=== PATIENT | female | born 1990 | race Caucasian/White ===

== ENCOUNTER 2017-01-10 21:20 | Emergency (ER) | payer BC, OTHER ==
[2017-01-10] MEDS ORDERED: ALBUTEROL SULFATE 0.083% NEB 2.5 MG/3 ML AMPUL NEB ONE (21:44)
--- NOTE | 2017-01-10 21:54 | ER Document Report ---
ED General - General Chief Complaint: Breathing Difficulty Stated Complaint: SHORTNESS OF BREATH Time Seen by Provider: 01/10/17 21:46 Notes: Patient is a 26-year-old female without past medical history, tobacco smoker, who presents with 1 day of progressively worsening shortness of breath. Patient states that she has had a upper respiratory illness for the past 1 week with associated dry cough, nasal congestion and sore throat. However she states for the past 24 hours she has had a progressively worsening severe shortness of breath with associated heaviness in her chest. The symptoms are constant and have been progressively worsening. She has been trying her son's albuterol inhalers at home with some improvement of her symptoms. She states any form of exertion worsens her symptoms. She has not seen a primary care doctor regarding today's concerns. She denies any history of DVT or pulmonary embolus. She has not had any fever or constitutional symptoms. TRAVEL OUTSIDE OF THE [place] IN LAST 30 DAYS: No - Related Data Allergies/Adverse Reactions: No Known Allergies Allergy (Unverified 08/03/11 14:31) Past Medical History - General Information source: Patient - Social History Smoking Status: Current Every Day Smoker Frequency of alcohol use: None Drug Abuse: None Lives with: Family Family History: Reviewed & Not Pertinent Pulmonary Medical History: Reports: Hx Bronchitis, Hx Pneumonia Past Surgical History: Reports: Hx Section - x1 - Immunizations Hx Diphtheria, Pertussis, Tetanus Vaccination: Yes Review of Systems - Review of Systems Notes: Constitutional: Negative for fever. HENT: Negative for sore throat. Eyes: Negative for visual changes. Cardiovascular: Negative for chest pain. Respiratory: Positive for shortness of breath. Gastrointestinal: Negative for abdominal pain, vomiting or diarrhea. Genitourinary: Negative for dysuria. Musculoskeletal: Negative for back pain. Skin: Negative for rash. Neurological: Negative for headaches, weakness or numbness. 10 point ROS negative except as marked above and in HPI. Physical Exam - Vital signs Vitals: Temp Pulse Resp BP Pulse Ox 98.1 F 119 H 22 H 139/83 H 90 L 01/10/17 21:28 01/10/17 21:28 01/10/17 21:28 01/10/17 21:28 01/10/17 21:28 Interpretation: Tachycardic, Hypoxic, Tachypneic Notes: PHYSICAL EXAMINATION: GENERAL: Appears to be in moderate respiratory distress, somewhat uncomfortable HEAD: Atraumatic, normocephalic. EYES: Pupils equal round and reactive to light, extraocular movements intact, sclera anicteric, conjunctiva are normal. ENT: nares patent, oropharynx clear without exudates. Dry mucous membranes. NECK: Normal range of motion, supple without lymphadenopathy LUNGS: Mild tachypnea, increased work of breathing but no retractions. Slightly diminished air movement throughout, scattered rhonchi and wheezing at the bases bilaterally. HEART: Regular tachycardia without murmurs ABDOMEN: Soft, nontender, normoactive bowel sounds. No guarding, no rebound. No masses appreciated. EXTREMITIES: Normal range of motion, no pitting or edema. No cyanosis. NEUROLOGICAL: No focal neurological deficits. Moves all extremities spontaneously and on command. PSYCH: Somewhat anxious. SKIN: Warm, Dry, normal turgor, no rashes or lesions noted. Course - Re-evaluation Re-evalutation: 01/10/17 21:52 Patient presents with shortness of breath, tachypnea, tachycardia and hypoxemia. Patient is somewhat ill in appearance, breathing quickly but otherwise in no acute distress. Examination shows scattered rhonchi but mild wheezing and tightness of air movement at the bases. Wheezing or tightness of air movement. She has no history of asthma and this to be an atypical presentation for first time presentation of asthma. Pneumonia is also in the differential although again this is somewhat unlikely as patient has no fever and denies any constitutional symptoms that would support this diagnosis. Influenza again seems unlikely as patient does not have a clinical history to support this diagnosis. Primary concerns at this time do include a possible pulmonary embolus, less likely a myocarditis of viral etiology with associated pulmonary edema. Patient does have some trace edema in her bilateral lower extremities and she states she is uncertain whether or not she has this at baseline. Will obtain a chest x-ray, labs including a venous blood gas, d-dimer , cardiac markers, and proBNP. Also trial a nebulizer to see if this has any improvement in patient's symptoms. Will continue to monitor very closely and reassess frequently. 01/10/17 22:19 I have reassessed the patient after her initial nebulizer and did not notice any significant difference in her lung examination. She remains with expiratory rhonchi in the lower lung jensen bilaterally. Remains oxygen dependent and slightly tachypneic. Will continue to monitor closely 01/10/17 22:58 D-dimer is negative. Troponin and BNP lites otherwise unremarkable. Patient continues to feel clinically improved after ongoing continuous nebulizer therapy. Steroids will also be administered. 01/11/17 00:12 Patient continues to be oxygen dependent although her work of breathing is now much improved. Suspect possible pneumonia despite a clinical history that is not entirely consistent with this diagnosis with superimposed obstructive airway disease secondary to smoking. I discussed this case with Dr. Taylor who will admit. - Vital Signs Vital signs: Temp Pulse Resp BP Pulse Ox 98.2 F 119 H 15 121/77 96 01/11/17 02:00 01/10/17 21:28 01/11/17 02:01 01/11/17 02:00 01/11/17 02:01 - Laboratory Result Diagrams: 01/10/17 21:56 01/10/17 21:56 Laboratory results interpreted by me: 01/10/17 01/10/17 21:56 21:56 WBC 13.9 H Eosinophils % 7.7 H Absolute Neutrophils 8.9 H Absolute Eosinophils 1.1 H Glucose 117 H - Diagnostic Test Radiology reviewed: Image reviewed, Reports reviewed Radiology results interpreted by me: 01/11/17 00:12 Chest x-ray: No acute infiltrate or pneumothorax - EKG Interpretation by Me Additional EKG results interpreted by me: 01/11/17 03:08 Sinus tachycardia. Rate 112. No ST elevations or depressions. QTC is 470. Critical Care Note - Critical Care Note Total time excluding time spent on procedures (mins): 37 Comments: Critical care time spent obtaining history from patient or surrogate, discussions with consultants, development of treatment plan with patient or surrogate, evaluation of patient's response to treatment, examination of patient , ordering and performing treatments and interventions, ordering and review of laboratory studies, re-evaluation of patient's condition, ordering and review of radiographic studies and review of old charts Discharge - Discharge Clinical Impression: Respiratory distress, Hypoxemia, Tachycardia Condition: Fair Disposition: ADMITTED OBSERVATION Admitting Provider: Dae Taylor Unit Admitted: Telemetry
[2017-01-10 22:18] LABS: ABSOLUTE BASOPHILS # (AUTO) 0.1 10^3/uL (0.0-0.2); ABSOLUTE EOSINOPHILS # (AUTO) 1.1 10^3/uL (0.0-0.6); ABSOLUTE LYMPHOCYTES (AUTO) 3.1 10^3/uL (0.5-4.7); ABSOLUTE MONOCYTES (AUTO) 0.7 10^3/uL (0.1-1.4); ABSOLUTE NEUT (AUTO) 8.9 10^3/uL (1.7-8.2); BASOPHILS % (AUTO) 0.5 % (0-2); EOSINOPHILS % (AUTO) 7.7 % (0-6); HEMATOCRIT 42.1 % (36.0-47.0); HEMOGLOBIN 14.4 g/dL (12.0-15.5); HGB HCT DIFFERENCE 1.1; LYMPHOCYTES % (AUTO) 22.4 % (13-45); MEAN CORPUSCULAR HEMOGLOBIN 29.1 pg (27.0-33.4); MEAN CORPUSCULAR HGB CONC 34.3 g/dL (32.0-36.0); MEAN CORPUSCULAR VOLUME 85 fl (80-97); MONOCYTES % (AUTO) 5.3 % (3-13); RED BLOOD COUNT 4.97 10^6/uL (3.72-5.28); RED CELL DISTRIBUTION WIDTH 13.6 % (11.5-14.0); SEGMENTED NEUTROPHILS % (AUTO) 64.1 % (42-78); WHITE BLOOD COUNT 13.9 10^3/uL (4.0-10.5)
[2017-01-10 22:19] LABS: VENOUS BLOOD BASE EXCESS -0.3 mmol/L; VENOUS BLOOD HCO3 25.4 mmol/L (20-32); VENOUS BLOOD PCO2 45.6 mmHg (35-63); VENOUS BLOOD PH 7.36 (7.30-7.42)
[2017-01-10 22:39] LABS: ANION GAP 15 (5-19); BLOOD UREA NITROGEN 13 mg/dL (7-20); CALCIUM 9.8 mg/dL (8.4-10.2); CARBON DIOXIDE 25 mmol/L (22-30); CHLORIDE 104 mmol/L (98-107); CREATININE RESULT 0.92 mg/dL (0.52-1.25); GLUCOSE 117 mg/dL (75-110); SODIUM 143.5 mmol/L (137-145)
[2017-01-10 22:52] LABS: TROPONIN I < 0.012 ng/mL
[2017-01-10] MEDS ORDERED: IPRATROPIUM/ALBUTEROL 0.5-2.5 MG/3 ML AMPUL NEB ONE (22:58)
[2017-01-10] MEDS ORDERED: METHYLPREDNISOLONE INJ 125 MG/2 ML SDV IV ONE (22:58)
--- NOTE | 2017-01-10 23:21 | EKG REPORT ---
SEVERITY:- OTHERWISE NORMAL ECG - SINUS TACHYCARDIA : Confirmed by: Jasiel Borja 10-Jan-2017 23:20:24
--- NOTE | 2017-01-10 23:38 | RADIOLOGY REPORT (SQ) ---
EXAM DESCRIPTION: CHEST SINGLE VIEW COMPLETED DATE/TIME: 01/10/2017 10:31 pm REASON FOR STUDY: sob COMPARISON: None. EXAM PARAMETERS: NUMBER OF VIEWS: One view. TECHNIQUE: Single frontal radiographic view of the chest acquired. RADIATION DOSE: NA LIMITATIONS: None. FINDINGS: LUNGS AND PLEURA: No opacities, masses or pneumothorax. No pleural effusion. MEDIASTINUM AND HILAR STRUCTURES: No masses. Contour normal. HEART AND VASCULAR STRUCTURES: Heart normal in size. Normal vasculature. BONES: No acute findings. HARDWARE: None in the chest. OTHER: No other significant finding. IMPRESSION: NO ACUTE RADIOGRAPHIC FINDING IN THE CHEST. TECHNICAL DOCUMENTATION: JOB ID: [id number] [employer]- All Rights Reserved
[2017-01-10] MEDS ORDERED: AZITHROMYCIN 250 MG TABLET PO ONE (23:48)
[2017-01-11] MEDS ORDERED: LACTULOSE SYRUP 20 GM/30 ML UDCUP PO ONE (00:20)
[2017-01-11] MEDS ORDERED: CHLORPHENIRAMINE MALEATE 4 MG TABLET PO ONE ×2 (00:21→05:30)
[2017-01-11] MEDS ORDERED: LANSOPRAZOLE 30 MG TAB.RAP.DR PO ONE ×2 (00:21→05:30)
[2017-01-11] MEDS ORDERED: IPRATROPIUM/ALBUTEROL 0.5-2.5 MG/3 ML AMPUL NEB PRN (00:22)
[2017-01-11] MEDS ORDERED: FLUTICASONE NASAL SPRAY 50 MCG/SPRY 120 SPRAY/16 GM NASL ONE ×2 (00:45→05:00)
[2017-01-11] MEDS ORDERED: CEFTRIAXONE 1 GM/D5W RTU 1 GM/50 ML RTUPB IV ONE ×2 (01:00→05:15)
[2017-01-11] MEDS ORDERED: PREDNISONE 20 MG TABLET PO ONE ×2 (01:00→05:00)
[2017-01-11] MEDS: IPRATROPIUM/ALBUTEROL 0.5-2.5 MG/3 ML AMPUL NEB SCH ×3 (02:10→13:32)
[2017-01-11] MEDS: GUAIFENESIN SYRP 200 MG/10 ML UDC PO PRN (04:13)
--- NOTE | 2017-01-11 04:53 | PDOC H&P ---
History of Present Illness Admission Date/PCP: 01/11/17 00:21 Patient complains of: Rhinorrhea, GERD, tobacco and shortness of breath History of Present Illness: ANNA RETANA is a 26 year old female with a past medical history of seasonal allergies, GERD and tobacco dependence who presents the emergency room after 3 weeks of rhinorrhea thought secondary to allergic sinusitis. She has had intermittently productive cough and severe shortness of breath associated with palpitations and tachycardia symptoms worse at night. She denies chest pain but palpitations promp her to seek evaluation emergency room where she is found to have an unremarkable workup with exception to hypoxia oxygen saturations of 89% on room air. She receives albuterol and Atrovent nebulizer referred to the hospitalist for observation. Patient denies recent antibiotic use Past Medical History Pulmonary Medical History: Reports: Bronchitis, Pneumonia Psychiatric Medical History: Reports: Tobacco Dependency Denies: Depression Past Surgical History Past Surgical History: Reports: Section - x1 Social History Information Source: Patient Lives with: Family Smoking Status: Current Every Day Smoker Last Time Smoked: 01/07/2017 Frequency of Alcohol Use: Rare Hx Recreational Drug Use: No Drugs: None Hx Prescription Drug Abuse: No - Advance Directive Resuscitation Status: Full Code Family History Family History: COPD Parental Family History Reviewed: Yes Children Family History Reviewed: Yes Sibling(s) Family History Reviewed.: Yes Medication/Allergy Home Medications: No Home Medications 1 08/03/11 Amox Tr/Potassium Clavulanate [Augmentin 875-125 mg Tablet] 1 tab PO Q12 #20 tab 04/30/15 Loratadine [Claritin 10 Mg Tablet] 10 mg PO DAILY #30 tablet 04/30/15 Prednisone 20 mg PO BID #6 tablet 04/30/15 Allergies/Adverse Reactions: No Known Allergies Allergy (Unverified 08/03/11 14:31) Review of Systems Constitutional: ABSENT: chills, fever(s), headache(s), weight gain, weight loss Eyes: ABSENT: visual disturbances Ears: ABSENT: hearing changes Cardiovascular: ABSENT: chest pain, dyspnea on exertion, edema, orthropnea, palpitations Respiratory: ABSENT: cough, hemoptysis Gastrointestinal: ABSENT: abdominal pain, constipation, diarrhea, hematemesis, hematochezia, nausea, vomiting Genitourinary: ABSENT: dysuria, hematuria Musculoskeletal: ABSENT: joint swelling Integumentary: ABSENT: rash, wounds Neurological: ABSENT: abnormal gait, abnormal speech, confusion, dizziness, focal weakness, syncope Psychiatric: ABSENT: anxiety, depression, homidical ideation, suicidal ideation Endocrine: ABSENT: cold intolerance, heat intolerance, polydipsia, polyuria Hematologic/Lymphatic: ABSENT: easy bleeding, easy bruising Physical Exam Vital Signs: Temp Pulse Resp BP Pulse Ox 98.2 F 88 16 121/77 96 01/11/17 02:00 01/11/17 02:10 01/11/17 02:10 01/11/17 02:00 01/11/17 02:01 General appearance: PRESENT: cooperative, mild distress, well-developed, well- nourished Head exam: PRESENT: atraumatic, normocephalic Eye exam: PRESENT: conjunctiva pink, EOMI, PERRLA. ABSENT: scleral icterus Ear exam: PRESENT: normal external ear exam Mouth exam: PRESENT: moist, tongue midline Neck exam: ABSENT: carotid bruit, JVD, lymphadenopathy, thyromegaly Respiratory exam: PRESENT: accessory muscle use, prolonged expiratory phas, retraction, tachypnea. ABSENT: chest wall tenderness, crackles, rales, rhonchi , stridor, wheezes Cardiovascular exam: PRESENT: RRR. ABSENT: diastolic murmur, rubs, systolic murmur Pulses: PRESENT: normal dorsalis pedis pul Vascular exam: PRESENT: normal capillary refill GI/Abdominal exam: PRESENT: normal bowel sounds, soft. ABSENT: distended, guarding, mass, organolmegaly, rebound, tenderness Rectal exam: PRESENT: deferred Extremities exam: PRESENT: full ROM. ABSENT: calf tenderness, clubbing, pedal edema Neurological exam: PRESENT: alert, awake, oriented to person, oriented to place , oriented to time, oriented to situation, CN II-XII grossly intact. ABSENT: motor sensory deficit Psychiatric exam: PRESENT: appropriate affect, normal mood. ABSENT: homicidal ideation, suicidal ideation Skin exam: PRESENT: dry, intact, warm. ABSENT: cyanosis, rash Results Impressions: Chest X-Ray 01/10/17 21:50 IMPRESSION: NO ACUTE RADIOGRAPHIC FINDING IN THE CHEST. Assessment & Plan - Diagnosis (1) Acute bronchitis Is this a current diagnosis for this admission?: Yes Plan: Complicated by uncontrolled seasonal allergies, postnasal drip, tobacco and GERD. She will be observed on a monitored bed with supplemental oxygen, incentive spirometry, albuterol and Atrovent, Flonase, chlorpheniramine and Prevacid. (2) Seasonal allergies Is this a current diagnosis for this admission?: Yes Plan: Chlorpheniramine and Flonase (3) Tobacco dependence Is this a current diagnosis for this admission?: Yes Plan: Tobacco Dependence patient received tobacco cessation counseling and offered nicotine replacement options (4) GERD (gastroesophageal reflux disease) Is this a current diagnosis for this admission?: Yes Plan: Prevacid (5) Respiratory distress Is this a current diagnosis for this admission?: Yes Plan: Please see #1 (6) Tachycardia Is this a current diagnosis for this admission?: Yes Plan: Secondary to #1. - Time Time Spent: 30 to 50 Minutes - Inpatient Certification Medical Necessity: Need Close Monitoring Due to Risk of Patient Decompensation
[2017-01-11] MEDS ORDERED: FLUTICASONE NASAL SPRAY 50 MCG/SPRY 120 SPRAY/16 GM ONE (06:27)
[2017-01-11] MEDS ORDERED: CHLORPHENIRAMINE MALEATE 4 MG TABLET ONE (06:27)
[2017-01-11 06:35] LABS: HEMATOCRIT 39.3 % (36.0-47.0); HEMOGLOBIN 13.7 g/dL (12.0-15.5); HGB HCT DIFFERENCE 1.8; MEAN CORPUSCULAR HEMOGLOBIN 29.4 pg (27.0-33.4); MEAN CORPUSCULAR HGB CONC 34.7 g/dL (32.0-36.0); MEAN CORPUSCULAR VOLUME 85 fl (80-97); RED BLOOD COUNT 4.65 10^6/uL (3.72-5.28); RED CELL DISTRIBUTION WIDTH 13.7 % (11.5-14.0); WHITE BLOOD COUNT 10.4 10^3/uL (4.0-10.5)
[2017-01-11] MEDS: HEPARIN SOD (PORCINE) 5,000 UNIT/ML 1 ML SYRINGE SUBCUT SCH ×3 (06:40→23:04)
[2017-01-11] MEDS ORDERED: AZITHROMYCIN 500 MG in DEXTROSE 5%-WATER 250 ML IV SCH (10:00)
[2017-01-11] MEDS: PREDNISONE 20 MG TABLET PO SCH ×2 (10:09→17:38)
[2017-01-11] MEDS: ACETAMINOPHEN 325 MG TABLET PO PRN ×2 (10:10→19:56)
[2017-01-11] MEDS: GUAIFENESIN 600 MG TABLET.SA PO SCH ×2 (10:10→23:03)
[2017-01-11] MEDS ORDERED: INFLUENZA ADLT QUAD (36MOS+) 2017-18 VAC 0.5 ML SYR IM PRN (10:38)
[2017-01-11] MEDS: FLUTICASONE NASAL SPRAY 50 MCG/SPRY 120 SPRAY/16 GM NASL SCH ×2 (10:50→21:21)
[2017-01-11] MEDS ORDERED: LABETALOL HCL INJ 20 MG/4 ML DISP.SYRIN IV ONE (14:16)
[2017-01-11] MEDS ORDERED: METOPROLOL SUCCINATE 50 MG TAB.SR.24H PO ONE (15:38)
[2017-01-11] MEDS: IPRATROPIUM/ALBUTEROL 0.5-2.5 MG/3 ML AMPUL NEB PRN (16:48)
--- NOTE | 2017-01-11 17:45 | PDOC PROGRESS REPORT ---
Subjective Progress Note for:: 01/11/17 Subjective:: Pt is seen resting in bed comfortably. She reports that she does feel slightly better as compared to last night. She denies fever, chills, headache, dizziness , chest pain, orthopnea, and cough. However, she does endorse chest discomfort r/t palpitations and continued dyspnea. She reports that her dyspnea does worsen with activity and is associated with the palpitations; "when my heart is beating harder and faster, it feels like I'm breathing through a straw." She denies previous history of palpitations or known arrhythmias. The patient states that aside from the palpitations and associated dyspnea, she feels to be in good health and would be ready to be discharged home. She has no other questions or concerns today. Physical Exam Vital Signs: Temp Pulse Resp BP Pulse Ox 98.0 F 123 H 22 H 139/79 H 92 01/11/17 15:01 01/11/17 16:48 01/11/17 16:48 01/11/17 15:01 01/11/17 16:48 Intake & Output 01/10/17 01/11/17 01/12/17 06:59 06:59 06:59 Intake Total 200 Balance 200 Weight 96.5 kg General appearance: PRESENT: no acute distress, obese, well-developed, well- nourished Head exam: PRESENT: atraumatic, normocephalic Eye exam: PRESENT: conjunctiva pink, EOMI, PERRLA. ABSENT: scleral icterus Ear exam: PRESENT: normal external ear exam Mouth exam: PRESENT: moist, tongue midline Neck exam: ABSENT: carotid bruit, JVD, lymphadenopathy, thyromegaly Respiratory exam: PRESENT: clear to auscultation nitish, rhonchi - occasional, symmetrical, unlabored. ABSENT: rales, tachypnea, wheezes Cardiovascular exam: PRESENT: RRR, tachycardia. ABSENT: diastolic murmur, rubs , systolic murmur Pulses: PRESENT: normal dorsalis pedis pul Vascular exam: PRESENT: normal capillary refill GI/Abdominal exam: PRESENT: normal bowel sounds, soft. ABSENT: distended, guarding, mass, organolmegaly, rebound, tenderness Rectal exam: PRESENT: deferred Extremities exam: PRESENT: full ROM. ABSENT: calf tenderness, clubbing, pedal edema Neurological exam: PRESENT: alert, awake, oriented to person, oriented to place , oriented to time, oriented to situation, CN II-XII grossly intact. ABSENT: motor sensory deficit Psychiatric exam: PRESENT: appropriate affect, normal mood. ABSENT: homicidal ideation, suicidal ideation Skin exam: PRESENT: dry, intact, warm. ABSENT: cyanosis, rash Results Laboratory Results: 01/11/17 05:57 01/11/17 05:57 WBC 10.4 RBC 4.65 Hgb 13.7 Hct 39.3 MCV 85 MCH 29.4 MCHC 34.7 RDW 13.7 Plt Count 236 Impressions: Chest X-Ray 01/10/17 21:50 IMPRESSION: NO ACUTE RADIOGRAPHIC FINDING IN THE CHEST. Assessment & Plan - Diagnosis (1) Tachycardia Is this a current diagnosis for this admission?: Yes Plan: Pt has persistent tachycardia with a HR of 120-140s and associated worsening dyspnea despite improvement in respiratory status. This is concerning for SVT/ PSVT rather than a reflection of an acute infectious process. Pt will be ready for discharge once HR is controlled. 1- Will trial Labetalol x1 2- Start metoprolol 25 mg BID as pt's BP is also elevated 3- Will scale back on Duonebs and observe for resolution of tachycardia (2) Acute bronchitis Is this a current diagnosis for this admission?: Yes Plan: Improved; pt reports that sore throat and post nasal drip have resolved. She denies cough. She is now maintaining oxygen saturations while on room air. 1- Continue Azithromycin 2- Supplemental oxygen to keep O2 sats >90% 3- Continue Flonase and chlorpheniramine 4- Will reduce nebulizer frequency given patient's persistent tachycardia (3) Seasonal allergies Qualifiers: Chronicity: unspecified Is this a current diagnosis for this admission?: Yes Plan: Improving; plan as above. (4) Tobacco dependence Is this a current diagnosis for this admission?: Yes Plan: Encouraged smoking cessation; nicotine replacement therapy offered. (5) GERD (gastroesophageal reflux disease) Is this a current diagnosis for this admission?: Yes Plan: Continue Prevacid (6) Respiratory distress Is this a current diagnosis for this admission?: Yes Plan: Resolved. Plan as above. - Time Time Spent with patient: 25-34 minutes Smoking Cessation Education: 3 to 10 minutes Anticipated discharge: Home - Inpatient Certification Medical Necessity: Need For Continuous Telemetry Monitoring
[2017-01-11] MEDS: METOPROLOL SUCCINATE 25 MG TAB.SR.24H PO SCH (23:03)
[2017-01-12] MEDS: IPRATROPIUM/ALBUTEROL 0.5-2.5 MG/3 ML AMPUL NEB PRN ×2 (00:02→18:16)
[2017-01-12] MEDS: HEPARIN SOD (PORCINE) 5,000 UNIT/ML 1 ML SYRINGE SUBCUT SCH ×3 (05:08→21:51)
[2017-01-12] MEDS: GUAIFENESIN SYRP 200 MG/10 ML UDC PO PRN (05:09)
[2017-01-12 05:39] LABS: HEMATOCRIT 42.3 % (36.0-47.0); HEMOGLOBIN 14.6 g/dL (12.0-15.5); HGB HCT DIFFERENCE 1.5; MEAN CORPUSCULAR HEMOGLOBIN 29.5 pg (27.0-33.4); MEAN CORPUSCULAR HGB CONC 34.5 g/dL (32.0-36.0); MEAN CORPUSCULAR VOLUME 85 fl (80-97); RED BLOOD COUNT 4.96 10^6/uL (3.72-5.28); RED CELL DISTRIBUTION WIDTH 14.1 % (11.5-14.0); WHITE BLOOD COUNT 20.7 10^3/uL (4.0-10.5)
[2017-01-12 05:49] LABS: ANION GAP 18 (5-19); BLOOD UREA NITROGEN 12 mg/dL (7-20); CARBON DIOXIDE 22 mmol/L (22-30); CHLORIDE 106 mmol/L (98-107); CREATININE RESULT 0.72 mg/dL (0.52-1.25); GLUCOSE 103 mg/dL (75-110); MAGNESIUM 2.1 mg/dL (1.6-2.3); POTASSIUM 4.7 mmol/L (3.6-5.0); SODIUM 146.1 mmol/L (137-145)
[2017-01-12] MEDS ORDERED: IPRATROPIUM/ALBUTEROL 0.5-2.5 MG/3 ML AMPUL NEB PRN (08:35)
[2017-01-12] MEDS ORDERED: BENZONATATE 100 MG CAPSULE PO PRN (08:37)
[2017-01-12] MEDS: NICOTINE 14 MG/24 HR PATCH.TD24 TD SCH (09:06)
[2017-01-12] MEDS: GUAIFENESIN 600 MG TABLET.SA PO SCH ×2 (09:07→22:05)
[2017-01-12] MEDS: METOPROLOL SUCCINATE 25 MG TAB.SR.24H PO SCH ×2 (09:07→22:04)
[2017-01-12] MEDS: AZITHROMYCIN 250 MG TABLET PO SCH (09:07)
[2017-01-12] MEDS: FLUTICASONE NASAL SPRAY 50 MCG/SPRY 120 SPRAY/16 GM NASL SCH ×2 (09:08→21:52)
[2017-01-12] MEDS ORDERED: PREDNISONE 20 MG TABLET PO SCH (10:00)
[2017-01-12] MEDS: GUAIFENESIN/CODEINE PHOS 100-10 MG/ 5 ML UDC PO PRN ×2 (11:39→15:45)
[2017-01-12] MEDS: METHYLPREDNISOLONE INJ 40 MG/1 ML SDV IV SCH ×2 (13:48→21:51)
--- NOTE | 2017-01-12 14:28 | PDOC PROGRESS REPORT ---
Subjective Progress Note for:: 01/12/17 Subjective:: Pt is seen resting in bed comfortably with family present. She states that she is continuing to improve slightly. She does continue to have chest discomfort described as being tightness and congestion that worsens with activity. She also has a nonproductive cough. She denies fever, chills, headache, dizziness, chest pain, orthopnea. Reports that the sensation of palpitations has resolved. She has no other questions or concerns today. Physical Exam Vital Signs: Temp Pulse Resp BP Pulse Ox 98.5 F 97 16 119/63 93 01/12/17 11:15 01/12/17 11:15 01/12/17 11:15 01/12/17 11:15 01/12/17 11:15 Intake & Output 01/11/17 01/12/17 01/13/17 06:59 06:59 06:59 Intake Total 200 1160 375 Balance 200 1160 375 Weight 96.5 kg General appearance: PRESENT: no acute distress, obese, well-developed, well- nourished Head exam: PRESENT: atraumatic, normocephalic Eye exam: PRESENT: conjunctiva pink, EOMI, PERRLA. ABSENT: scleral icterus Ear exam: PRESENT: normal external ear exam Mouth exam: PRESENT: moist, tongue midline Neck exam: ABSENT: carotid bruit, JVD, lymphadenopathy, thyromegaly Respiratory exam: PRESENT: clear to auscultation nitish, unlabored, wheezes - Expiratory wheezing bilaterally. ABSENT: rales, rhonchi, tachypnea Cardiovascular exam: PRESENT: RRR, +S1, +S2. ABSENT: diastolic murmur, rubs, systolic murmur, tachycardia Pulses: PRESENT: normal dorsalis pedis pul Vascular exam: PRESENT: normal capillary refill GI/Abdominal exam: PRESENT: normal bowel sounds, soft. ABSENT: distended, guarding, mass, organolmegaly, rebound, tenderness Rectal exam: PRESENT: deferred Extremities exam: PRESENT: full ROM. ABSENT: calf tenderness, clubbing, pedal edema Neurological exam: PRESENT: alert, awake, oriented to person, oriented to place , oriented to time, oriented to situation, CN II-XII grossly intact. ABSENT: motor sensory deficit Psychiatric exam: PRESENT: appropriate affect, normal mood. ABSENT: homicidal ideation, suicidal ideation Skin exam: PRESENT: dry, intact, warm. ABSENT: cyanosis, rash Results Laboratory Results: 01/12/17 04:50 01/12/17 04:50 01/12/17 01/12/17 04:50 04:50 WBC 20.7 H RBC 4.96 Hgb 14.6 Hct 42.3 MCV 85 MCH 29.5 MCHC 34.5 RDW 14.1 H Plt Count 318 Sodium 146.1 H Potassium 4.7 Chloride 106 Carbon Dioxide 22 Anion Gap 18 BUN 12 Creatinine 0.72 Est GFR ( Amer) > 60 Est GFR (Non-Af Amer) > 60 Glucose 103 Calcium 10.0 Magnesium 2.1 Impressions: Chest X-Ray 01/10/17 21:50 IMPRESSION: NO ACUTE RADIOGRAPHIC FINDING IN THE CHEST. Assessment & Plan - Diagnosis (1) Acute bronchitis Is this a current diagnosis for this admission?: Yes Plan: Slight improvement; she is now maintaining oxygen saturations while on room air , however, is now noted to have expiratory wheezes bilaterally. 1- transition to p.o. azithromycin 2- Supplemental oxygen to keep O2 sats >90%; encourage ambulation 3- Continue Flonase and chlorpheniramine 4- Will increase to Solu-Medrol 40 mg every 8 (2) Hypertension Is this a current diagnosis for this admission?: Yes Plan: Improved and acceptable blood pressures with Toprol. (3) Tachycardia Is this a current diagnosis for this admission?: Yes Plan: Resolved. Pt had persistent tachycardia with a HR of 120-140s despite improvement in overall clinical appearance/symptoms. She has been afebrile, with normal respiratory rate and maintaining oxygen saturations while on room air. This is concerning for possible SVT/PSVT rather than a reflection of an acute infectious process. Her tachycardia has resolved and her blood pressures are much improved with metoprolol. 1- continue metoprolol 25 mg BID (4) Seasonal allergies Qualifiers: Chronicity: unspecified Is this a current diagnosis for this admission?: Yes Plan: Improving; plan as above. (5) Tobacco dependence Is this a current diagnosis for this admission?: Yes Plan: Encouraged smoking cessation; nicotine replacement therapy offered. 3-10 minutes were spent encouraging smoking cessation, counseling included discussion of nicotine replacement therapies, quitting techniques, habitual substitutions (hard candies/gum), and community resources. (6) GERD (gastroesophageal reflux disease) Is this a current diagnosis for this admission?: Yes Plan: Continue Prevacid (7) Respiratory distress Is this a current diagnosis for this admission?: Yes Plan: Resolved. Plan as above. - Time Time Spent with patient: 25-34 minutes Smoking Cessation Education: 3 to 10 minutes Medications reviewed and adjusted accordingly: Yes Anticipated discharge: Home Within: within 48 hours
[2017-01-13] MEDS: IPRATROPIUM/ALBUTEROL 0.5-2.5 MG/3 ML AMPUL NEB PRN ×2 (00:37→05:07)
[2017-01-13] MEDS: METHYLPREDNISOLONE INJ 40 MG/1 ML SDV IV SCH ×2 (05:20→14:26)
[2017-01-13] MEDS: HEPARIN SOD (PORCINE) 5,000 UNIT/ML 1 ML SYRINGE SUBCUT SCH ×2 (05:20→14:26)
[2017-01-13 05:24] LABS: HEMATOCRIT 41.6 % (36.0-47.0); HEMOGLOBIN 14.1 g/dL (12.0-15.5); HGB HCT DIFFERENCE 0.7; MEAN CORPUSCULAR HEMOGLOBIN 28.6 pg (27.0-33.4); MEAN CORPUSCULAR HGB CONC 33.9 g/dL (32.0-36.0); MEAN CORPUSCULAR VOLUME 84 fl (80-97); RED BLOOD COUNT 4.93 10^6/uL (3.72-5.28); RED CELL DISTRIBUTION WIDTH 13.7 % (11.5-14.0); WHITE BLOOD COUNT 14.8 10^3/uL (4.0-10.5)
[2017-01-13 05:52] LABS: ANION GAP 15 (5-19); BLOOD UREA NITROGEN 17 mg/dL (7-20); CALCIUM 9.9 mg/dL (8.4-10.2); CARBON DIOXIDE 23 mmol/L (22-30); CHLORIDE 106 mmol/L (98-107); CREATININE RESULT 0.72 mg/dL (0.52-1.25); GLUCOSE 126 mg/dL (75-110); POTASSIUM 5.3 mmol/L (3.6-5.0); SODIUM 143.9 mmol/L (137-145)
[2017-01-13] MEDS: GUAIFENESIN 600 MG TABLET.SA PO SCH (09:41)
[2017-01-13] MEDS: NICOTINE 14 MG/24 HR PATCH.TD24 TD SCH (09:42)
[2017-01-13] MEDS: FLUTICASONE NASAL SPRAY 50 MCG/SPRY 120 SPRAY/16 GM NASL SCH (09:42)
[2017-01-13] MEDS: AZITHROMYCIN 250 MG TABLET PO SCH (09:42)
[2017-01-13 12:05] LABS: ANION GAP 14 (5-19); BLOOD UREA NITROGEN 14 mg/dL (7-20); CARBON DIOXIDE 23 mmol/L (22-30); CHLORIDE 106 mmol/L (98-107); CREATININE RESULT 0.71 mg/dL (0.52-1.25); GLUCOSE 107 mg/dL (75-110); SODIUM 142.7 mmol/L (137-145)
[2017-01-13 12:54] VITALS: BP 108/76
--- NOTE | 2017-01-13 17:06 | PDOC DISCHARGE SUMMARY ---
General - Admit/Disc Date/PCP Admission Date/Primary Care Provider: 01/11/17 00:21 Discharge Date: 01/13/17 - Discharge Diagnosis (1) Acute bronchitis Is this a current diagnosis for this admission?: Yes Summary: Patient was admitted for productive cough, severe shortness of breath, palpitations and tachycardia, and hypoxia. Her initial oxygen saturations were 89% on room air. She reports 3 weeks of rhinorrhea, congestion, and intermittent productive cough preceded the admission. She was provided provided with supplemental oxygen, steroids, albuterol and Atrovent nebs as needed, Flonase, and chlorpheniramine. As the symptoms were preceded by 3 weeks of a viral-like illness to improve slightly before quickly worsening, she was also treated with azithromycin. She quickly improved and was weaned from supplemental oxygen to room air the following day. However, she continued to have inspiratory and expiratory wheezing with a sensation of chest tightness and palpitations. Therefore she was kept an additional 2 days to continue IV steroids while monitoring for resolution of her tachycardia. On day of discharge, the patient was stable. She is amatory on room air and maintains oxygen saturations greater than 96%. Continues to have a productive cough and occasional late expiratory wheezing that responds well to nebulizer treatments. At this time she requested discharged home. She is discharged with prescriptions for a steroid Dosepak, duo nebs, azithromycin, and test next cough syrup. She is instructed to follow-up with her primary care provider within 2 to weeks. (2) Hypertension Is this a current diagnosis for this admission?: Yes Summary: Patient was noted to be hypertensive with her I's blood pressure being 150/89. Additionally she had persistent tachycardia after resolution of her acute illness symptoms. Therefore she was started on low-dose metoprolol for heart rate and blood pressure management. Patient was encouraged to lose weight, eat a low-sodium diet, and to stop smoking. (3) Tachycardia Is this a current diagnosis for this admission?: Yes Summary: Patient was noted to have persistent tachycardia with heart rate of 140 after resolution of her respiratory symptoms. She complained of uncomfortable palpitations that seem to proceed her symptoms of dyspnea. She was also found to have an elevated blood pressure, and so was placed on low-dose metoprolol. She experienced resolution of her palpitations with improvement in blood pressure and heart rate. (4) Seasonal allergies Is this a current diagnosis for this admission?: Yes Summary: Patient was prescribed Flonase and chlorpheniramine. (5) Tobacco dependence Is this a current diagnosis for this admission?: Yes (6) GERD (gastroesophageal reflux disease) Is this a current diagnosis for this admission?: Yes Summary: Controlled with Prevacid. (7) Respiratory distress Is this a current diagnosis for this admission?: Yes Summary: Resolved; as above. - Additional Information Resuscitation Status: Full Code Discharge Diet: Regular Discharge Activity: Activity As Tolerated, Balance Activity w/Rest Home Medications: Azithromycin [Zithromax 250 mg Tablet] 250 mg PO DAILY #5 tablet 01/13/17 Fluticasone Propionate [Flonase Nasal [place] 50 Mcg/[place] 16 gm] 2 spray NASL Q12 #1 spray.pump 01/13/17 Guaifenesin/Codeine Phos [Robitussin-AC Liquid 5 ml Udcup] 5 ml PO QIDP PRN # 120 ml 01/13/17 Ipratropium/Albuterol Sulfate [Duoneb 3 ml Ampul] 3 ml NEB [id number] PRN #100 vial.neb 01/13/17 Metoprolol Succinate [Toprol Xl 25 mg Tab.sr] 25 mg PO QHS #30 tab.sr.24h Nicotine [Nicoderm 14 mg/24 Hr Transdermal Patch] 1 each TD DAILY #7 patch.td24 01/13/17 Nicotine [Nicoderm 7 mg/24 Hr Transdermal Patch] 1 each TD DAILY #14 patch.td24 01/13/17 Prednisone 10 mg PO ASDIR #1 tab.ds.pk 01/13/17 History of Present Illness History of Present Illness: Per H&P by Dr. Taylor: ANNA RETANA is a 26 year old female with a past medical history of seasonal allergies, GERD and tobacco dependence who presents to the emergency room after 3 weeks of rhinorrhea thought secondary to allergic sinusitis. She has had intermittently productive cough and severe shortness of breath associated with palpitations and tachycardia symptoms worse at night. She denies chest pain but palpitation prompted her to seek evaluation in the emergency room where she is found to have an unremarkable workup with exception of hypoxia oxygen saturations of 89% on room air. She received albuterol and Atrovent nebulizer referred to the hospitalist for observation. Patient denies recent antibiotic use. Physical Exam Vital Signs: Temp Pulse Resp BP Pulse Ox 97.5 F 76 18 108/76 95 01/13/17 14:10 01/13/17 14:10 01/13/17 14:10 01/13/17 14:10 01/13/17 14:10 Intake & Output 01/12/17 01/13/17 01/14/17 06:59 06:59 06:59 Intake Total 1160 2200 350 Balance 1160 2200 350 Weight 94.8 kg General appearance: PRESENT: no acute distress, obese, well-developed, well- nourished Head exam: PRESENT: atraumatic, normocephalic Eye exam: PRESENT: conjunctiva pink, EOMI, PERRLA. ABSENT: scleral icterus Ear exam: PRESENT: normal external ear exam Mouth exam: PRESENT: moist, tongue midline Neck exam: ABSENT: carotid bruit, JVD, lymphadenopathy, thyromegaly Respiratory exam: PRESENT: clear to auscultation nitish, symmetrical, unlabored. ABSENT: rales, rhonchi, wheezes Cardiovascular exam: PRESENT: RRR, +S1, +S2. ABSENT: diastolic murmur, rubs, systolic murmur, tachycardia Pulses: PRESENT: normal dorsalis pedis pul Vascular exam: PRESENT: normal capillary refill GI/Abdominal exam: PRESENT: normal bowel sounds, soft. ABSENT: distended, guarding, mass, organolmegaly, rebound, tenderness Rectal exam: PRESENT: deferred Extremities exam: PRESENT: full ROM. ABSENT: calf tenderness, clubbing, pedal edema Neurological exam: PRESENT: alert, awake, oriented to person, oriented to place , oriented to time, oriented to situation, CN II-XII grossly intact. ABSENT: motor sensory deficit Psychiatric exam: PRESENT: appropriate affect, normal mood. ABSENT: homicidal ideation, suicidal ideation Skin exam: PRESENT: dry, intact, warm. ABSENT: cyanosis, rash Results Laboratory Results: 01/13/17 04:52 01/13/17 11:39 01/13/17 01/13/17 01/13/17 04:52 04:52 11:39 WBC 14.8 H RBC 4.93 Hgb 14.1 Hct 41.6 MCV 84 MCH 28.6 MCHC 33.9 RDW 13.7 Plt Count 277 Sodium 143.9 142.7 Potassium 5.3 H 5.0 Chloride 106 106 Carbon Dioxide 23 23 Anion Gap 15 14 BUN 17 14 Creatinine 0.72 0.71 Est GFR ( Amer) > 60 > 60 Est GFR (Non-Af Amer) > 60 > 60 Glucose 126 H 107 Calcium 9.9 10.0 Impressions: Chest X-Ray 01/10/17 21:50 IMPRESSION: NO ACUTE RADIOGRAPHIC FINDING IN THE CHEST. Qualifiers PATEINT BEING DISCHARGED WITH ANY OF THE FOLLOWING DIAGNOSIS?: No
[2017-01-13] MEDS ORDERED: METOPROLOL SUCCINATE 25 MG TAB.SR.24H PO SCH (22:00)
== END 2017-01-13 14:25 | disposition home or self-care (01) ==
LOC: ER 21:20 → EH 01-11 00:21 → 3W 01-11 02:20
PROVIDERS: ADMIT Internal Medicine; ATTEND Internal Medicine
DX: R06.00 Dyspnea, unspecified (principal); J02.9 Acute pharyngitis, unspecified; R09.02 Hypoxemia; R06.02 Shortness of breath; F17.200 Nicotine dependence, unspecified, uncomplicated; R05 Cough; R09.81 Nasal congestion; R00.0 Tachycardia, unspecified
CPT/HCPCS: 93005; 94640 ×5; 99291; 96374; 36415 ×4; 83735; 85025; 85027 ×3; 80048 ×3; 84484; 85379; 82803; 83880; 71010; 94799; 93010; J1644 ×3; J3490 ×4; J2920 ×2; J2930; J7512 ×2; J7060; J0456; J0696; J7620 ×4